=== PATIENT | female | born 1995 | race Caucasian/White ===

== ENCOUNTER 2018-02-25 09:13 | Emergency (ER) | payer BC ==
[~2018-02-25] VITALS: Ht 165.1 cm; Wt 49.1 kg
[~2018-02-25 09:13] MED LIST: IBUP-232 PO; OSEL75 PO; ZOFR4TAB PO
[2018-02-25 09:15] VITALS: BP 121/58; PULSE 97; RESP 16; TEMP 98.2; O2SAT 95
--- NOTE | 2018-02-25 09:39 | PD ---
HPI Chief Complaint: Abdominal Pain Time Seen by Provider: 09:30 Travel History International Travel<30 days: No Contact w/Intl Traveler<30days: No Traveled to known affect area: No History of Present Illness HPI This 22-year-old female says she was awoken early this morning with lower abdominal pain. Pain involves the right flank and right side of the abdomen. She says it is quite severe. She does not recall having pain like this before. Her last period was about a month ago. She says there is no chance of . Her last period was 1 month ago [facility] Past Medical History Anxiety: Yes Depression: Yes Diminished Hearing: No Gastrointestinal Disorders: Yes (IRRITABLE BOWEL SYNDROME) Headaches: Yes Immunizations Current: Yes Migraines: Yes Influenza Vaccination: No ?: Not LMP: LAST MONTH Past Surgical History Abdominal Surgery: Yes Section: Yes Social History Alcohol Use: Yes (OCC) Tobacco Use: Yes (OCCAS) Substance Use: No Allergies-Medications (Allergen,Severity, Reaction): Coded Allergies: latex (Unverified Allergy, Intermediate, Burning, 02/25/18) hydrocodone (Unverified Allergy, Unknown, itchy, 02/25/18) oxycodone (Unverified Allergy, Unknown, makes me sick, 02/25/18) Uncoded Allergies: LATEX CONDOMS (Adverse Reaction, Intermediate, BURNING, 02/25/18) .. Reported Meds & Prescriptions Reported Meds & Active Scripts Active Review of Systems General / Constitutional: No: Fever, Chills Eyes: No: Diploplia, Blurred Vision HENT: No: Headaches Cardiovascular: No: Chest Pain or Discomfort Respiratory: No: Cough Gastrointestinal: Positive: Nausea Genitourinary: Positive: Flank Pain Musculoskeletal: No: Myalgias, Arthralgias Skin: No Rash, No Itching Neurologic: No: Weakness Hematologic/Lymphatic: No: Easy Bruising Physical Exam Narrative GENERAL: Well-developed female SKIN: Focused skin assessment warm/dry. HEAD: Atraumatic. Normocephalic. EYES: Pupils equal and round. No scleral icterus. No injection or drainage. ENT: No nasal bleeding or discharge. Mucous membranes pink and moist. NECK: Trachea midline. No JVD. CARDIOVASCULAR: Regular rate and rhythm. No murmur appreciated. RESPIRATORY: No accessory muscle use. Clear to auscultation. Breath sounds equal bilaterally. GASTROINTESTINAL: Abdomen soft, non-tender, nondistended. Hepatic and splenic margins not palpable. There is some right CVA tendernesS Pelvic exam is slight bleeding from the cervical loss. There is some pain with movement of the cervix and some uterine tenderness no abnormal masses are felt MUSCULOSKELETAL: No obvious deformities. No clubbing. No cyanosis. No edema. NEUROLOGICAL: Awake and alert. No obvious cranial nerve deficits. Motor grossly within normal limits. Normal speech. PSYCHIATRIC: Appropriate mood and affect; insight and judgment normal. Data Data Last Documented VS Vital Signs Date Time Temp Pulse Resp B/P (MAP) Pulse Ox O2 Delivery O2 Flow Rate FiO2 02/25/18 10:46 84 18 113/74 (87) 97 Room Air 02/25/18 09:15 98.2 Orders Orders Urinalysis - C+S If Indicated (02/25/18 09:29) Ed Urine Pregnancytest Poc (02/25/18 09:29) Complete Blood Count With Diff (02/25/18 09:35) Comprehensive Metabolic Panel (02/25/18 09:35) Sodium Chlor 0.9% 1000 Ml Inj (Ns 1000 M (02/25/18 09:45) Ondansetron Inj (Zofran Inj) (02/25/18 09:45) Ketorolac Inj (Toradol Inj) (02/25/18 09:45) Ct Abd/Pel W/O Iv Contrast (02/25/18 10:03) Hydromorphone Pf Inj (Dilaudid Pf Inj) (02/25/18 10:30) Hydromorphone Pf Inj (Dilaudid Pf Inj) (02/25/18 11:00) Gc And Chlamydia Pcr (02/25/18 10:55) Ceftriaxone Inj (Rocephin Inj) (02/25/18 11:00) Labs Laboratory Tests Test 02/25/18 09:25 02/25/18 09:50 Urine Collection Type CLEAN CATCH Urine Color YELLOW Urine Turbidity SL CLOUDY Urine pH 5.5 Urine Specific [place] GREATER/EQUAL 1.030 Urine Protein NEG mg/dL Urine Glucose (UA) NEG mg/dL Urine Ketones TRACE mg/dL Urine Occult Blood LARGE Urine Nitrite NEG Urine Bilirubin NEG Urine Urobilinogen 0.2 MG/DL Urine Leukocyte Esterase NEG Urine RBC 25-49 /hpf Urine WBC 3-5 /hpf Urine Squamous Epithelial Cells 6-8 /hpf Urine Amorphous Sediment MOD Microscopic Urinalysis Comment CULT NOT INDICATED Urine Collection Time 0925 White Blood Count 8.8 TH/MM3 Red Blood Count 5.27 MIL/MM3 Hemoglobin 17.6 GM/DL Hematocrit 48.5 % Mean Corpuscular Volume 92.0 FL Mean Corpuscular Hemoglobin 33.3 PG Mean Corpuscular Hemoglobin Concent 36.2 % Red Cell Distribution Width 12.7 % Platelet Count 219 TH/MM3 Mean Platelet Volume 10.0 FL Neutrophils (%) (Auto) 79.8 % Lymphocytes (%) (Auto) 13.5 % Monocytes (%) (Auto) 4.6 % Eosinophils (%) (Auto) 0.2 % Basophils (%) (Auto) 1.9 % Neutrophils # (Auto) 6.9 TH/MM3 Lymphocytes # (Auto) 1.2 TH/MM3 Monocytes # (Auto) 0.4 TH/MM3 Eosinophils # (Auto) 0.0 TH/MM3 Basophils # (Auto) 0.2 TH/MM3 CBC Comment AUTO DIFF Differential Comment AUTO DIFF CONFIRMED Platelet Estimate NORMAL Platelet Morphology Comment NORMAL Blood Urea Nitrogen 10 MG/DL Creatinine 0.63 MG/DL Random Glucose 106 MG/DL Total Protein 8.9 GM/DL Albumin 5.1 GM/DL Calcium Level 9.5 MG/DL Alkaline Phosphatase 74 U/L Aspartate Amino Transf (AST/SGOT) 19 U/L Alanine Aminotransferase (ALT/SGPT) 24 U/L Total Bilirubin 0.3 MG/DL Sodium Level 140 MEQ/L Potassium Level 4.2 MEQ/L Chloride Level 108 MEQ/L Carbon Dioxide Level 23.1 MEQ/L Anion Gap 9 MEQ/L Estimat Glomerular Filtration Rate 117 ML/MIN [facility] Medical Decision Making Medical Screen Exam Complete: Yes Emergency Medical Condition: Yes Medical Record Reviewed: Yes Differential Diagnosis Differential includes renal colic, ovarian cyst, appendicitis Narrative Course Urinalysis did show 25-[address] was obtained for kidney stone and is negative for stone. The white count is normal. Exam is suspicious for ovarian cyst. She does have some pain with movement of the cervix and will be covered for cervicitis. Patient indicates an allergy to hydrocodone and oxycodone. She says that they cause her to have some mild itching But she generally tolerates theM well Diagnosis Primary Impression: Right ovarian cyst Scripts Hydrocodone-Acetaminophen ([place]) 7.5-325 mg Tab 1 TAB PO Q4H Y for PAIN, #12 TAB 0 Refills Prov: Jim Sparks MD 02/25/18 Doxycycline Hyclate (Vibramycin) 100 Mg Cap 100 MG PO BID for Infection for 20 Days, #40 CAP 0 Refills Prov: Jim Sparks MD 02/25/18 Disposition: 01 DISCHARGE HOME Condition: Stable Jim Sparks MD Feb 25, 2018 09:39
[2018-02-25] MEDS ORDERED: SODIUM CHLOR 0.9% 1000 ML INJ 1,000 ML IV ONE (09:45)
[2018-02-25] MEDS ORDERED: ONDANSETRON HCL 4 MG/2 ML VIAL IV PUSH ONE (09:45)
[2018-02-25] MEDS ORDERED: KETOROLAC TROMETHAMINE 30 MG/ML (IVP) VIAL IV PUSH ONE (09:45)
[2018-02-25 09:51] LABS: BLOOD, URINE LARGE (NEG); GLUCOSE,URINE NEG (NEG); KETONE, URINE TRACE mg/dL (NEG); NITRITE,URINE NEG (NEG); PH, URINE 5.5 (5.0-8.5); URINE COLOR YELLOW (YELLW/STRAW); URINE LEUKOCYTE ESTERASE NEG (NEG)
[2018-02-25 09:57] LABS: BILIRUBIN, URINE NEG (NEG)
[2018-02-25 10:01] LABS: AMORPHOUS SEDIMENT, URINE MOD
[2018-02-25 10:06] LABS: AUTOMATED NEUTROPHIL # 6.9 TH/MM3 (1.8-7.7); BASOPHIL # 0.2 TH/MM3 (0-0.2); BASOPHIL % 1.9 % (0.0-2.0); EOSINOPHIL % 0.2 % (0.0-4.0); HEMATOCRIT 48.5 % (35.0-46.0); HEMOGLOBIN 17.6 GM/DL (11.6-15.3); LYMPH % 13.5 % (9.0-44.0); LYMPHOCYTE # 1.2 TH/MM3 (1.0-4.8); MEAN CORPUSCULAR HEMOGLOBIN 33.3 PG (27.0-34.0); MONO % 4.6 % (0.0-8.0); MONOCYTE # 0.4 TH/MM3 (0-0.9); NEUT % 79.8 % (16.0-70.0); PLATELET COUNT 219 TH/MM3 (150-450); RED BLOOD COUNT 5.27 MIL/MM3 (4.00-5.30); RED CELL DISTRIBUTION WIDTH 12.7 % (11.6-17.2); WHITE BLOOD COUNT 8.8 TH/MM3 (4.0-11.0)
[2018-02-25 10:16] LABS: CHLORIDE 108 MEQ/L (98-107); SODIUM (NA) 140 MEQ/L (136-145)
[2018-02-25 10:17] LABS: CALCIUM 9.5 MG/DL (8.5-10.1)
[2018-02-25 10:18] LABS: ALBUMIN 5.1 GM/DL (3.4-5.0); BICARBONATE 23.1 MEQ/L (21.0-32.0); BLOOD UREA NITROGEN 10 MG/DL (7-18); GLUCOSE,RANDOM 106 MG/DL (74-106)
[2018-02-25 10:19] LABS: MEAN CORPUSCULAR HGB CONC 36.2 % (32.0-36.0)
[2018-02-25 10:21] LABS: ALT (GPT) 24 U/L (10-53); AST (GOT) 19 U/L (15-37); CREATININE 0.63 MG/DL (0.50-1.00); GLOMERULAR FILTRATION RATE 117 ML/MIN (>89)
[2018-02-25 10:22] LABS: TOTAL BILIRUBIN ADULT 0.3 MG/DL (0.2-1.0); TOTAL PROTEIN 8.9 GM/DL (6.4-8.2)
[2018-02-25 10:24] LABS: ALKALINE PHOSPHATASE 74 U/L (45-117)
[2018-02-25] MEDS ORDERED: HYDROmorphone HCL PF 1 MG/ML VIAL IV PUSH ONE (10:30)
--- NOTE | 2018-02-25 10:45 | RADRPT ---
EXAM DATE: 02/25/2018 10:27 AM EDT AGE/SEX: 22 years / Female INDICATIONS: Right flank pain. CLINICAL DATA: This is the patient's initial encounter. Patient reports that signs and symptoms have been present for 1 day and indicates a pain score of 9/10. MEDICAL/SURGICAL HISTORY: Irritable bowel syndrome. section. RADIATION DOSE: 4.31 CTDI (mGy) COMPARISON: No prior exams available for comparison. TECHNIQUE: Multiple contiguous axial images were obtained through the abdomen. Images were obtained using multiple row detector helical technique. Using dose reduction techniques, radiation dose was ke pt as low as reasonably achievable to obtain optimal diagnostic quality images. FINDINGS: Lower Lungs: The visualized lower lungs are clear. Liver: Visualized portions grossly unremarkable Spleen: Homogeneous density without enlargement. Pancreas: Unremarkable without mass or calcification. Kidneys: Normal in size and shape. No evidence of mass or hydronephrosis. Adrenal Glands: Unremarkable. Aorta: The aorta and proximal iliac vessels are grossly unremarkable without aneurysmal dilation. Bowel/Mesentery: The bowel loops are grossly unremarkable. The cecum and sigmoid colon have a normal configuration. Abdominal Wall: Intact. Retroperitoneum: No evidence of adenopathy in the retrocrural, para-aortic, or deep pelvic regions. Bladder: Contours are smooth. Reproductive Organs: No abnormal masses or calcifications seen. Inguinal: The inguinal region is unremarkable without evidence of adenopathy. Bony Structures: Unremarkable. CONCLUSION: No evidence of kidney stone or hydronephrosis Electronically signed by: Rohit Page MD 02/25/2018 10:44 AM EDT
[2018-02-25 10:46] VITALS: BP 113/74; PULSE 84; RESP 18; O2SAT 97
[2018-02-25] MEDS ORDERED: cefTRIAXone INJ 1,000 MG in SODIUM CHLORIDE 0.9% INJ 100 ML IV ONE (11:00)
[2018-02-25] MEDS ORDERED: HYDROmorphone HCL PF 0.5 MG/0.5 ML SYRINGE IV PUSH ONE (11:00)
[2018-02-25] MEDS ORDERED: VIBR100C PO (11:06)
[2018-02-25] MEDS ORDERED: HYDR-3288 PO (11:06)
[2018-02-25 11:44] VITALS: BP 112/59; PULSE 56; RESP 18; O2SAT 99
== END 2018-02-25 12:12 | disposition home or self-care (01) ==
LOC: PHED 09:13
DX: N83.201 Unspecified ovarian cyst, right side (principal); F41.9 Anxiety disorder, unspecified; F32.9 Major depressive disorder, single episode, unspecified; K58.9 Irritable bowel syndrome, unspecified; Z72.0 Tobacco use
CPT/HCPCS: 74176; 80053; 81001; 84703; 85025; 87491; 87591; 96361; 96365; 96375; 99284; J0696; J1170; J1885; J2405; J7030

== ENCOUNTER 2018-03-02 18:05 | Emergency (ER) | payer BC ==
[~2018-03-02] VITALS: Ht 165.1 cm; Wt 46.0 kg
[~2018-03-02 18:05] MED LIST changes: +HYDR-3288 PO; -IBUP-232 PO; -OSEL75 PO; +VIBR100C PO; -ZOFR4TAB PO
[2018-03-02 18:11] VITALS: BP 124/78; PULSE 85; RESP 16; TEMP 98.3; O2SAT 99
--- NOTE | 2018-03-02 18:30 | PD ---
HPI Chief Complaint: Abdominal Pain Time Seen by Provider: 18:18 Travel History International Travel<30 days: No Contact w/Intl Traveler<30days: No Traveled to known affect area: No History of Present Illness HPI 22yo F with PMH of anxiety here with c/o persistent abdominal pain since last week. Pt was seen here at [facility] on 02/25/18 and had urinalysis that showed RBC so CT a/p was completed but did not show any stones. Pelvic exam at the time suspicious for ovarian cyst with some pain with movement of cervix so pt was given doxycycline. Pt said her pain has moved from lower to mid/upper right abdomen. Said pain radiates from right mid abdomen to back. Associated with nausea but not vomiting. No actual fever but feels warm and cold. Pt said she is at the end of her menstrual period. PFSH Past Medical History Anxiety: Yes Depression: Yes Diminished Hearing: No Gastrointestinal Disorders: Yes (IRRITABLE BOWEL SYNDROME) Headaches: Yes Immunizations Current: Yes Migraines: Yes ?: Not LMP: 02/23/18 Past Surgical History Abdominal Surgery: Yes Section: Yes Social History Alcohol Use: Yes (OCC) Tobacco Use: Yes (OCCAS) Substance Use: No Allergies-Medications (Allergen,Severity, Reaction): Coded Allergies: latex (Unverified Allergy, Intermediate, Burning, 03/02/18) hydrocodone (Unverified Allergy, Unknown, itchy, 03/02/18) oxycodone (Unverified Allergy, Unknown, makes me sick, 03/02/18) Uncoded Allergies: LATEX CONDOMS (Adverse Reaction, Intermediate, BURNING, 03/02/18) ... Reported Meds & Prescriptions Reported Meds & Active Scripts Active Hydroxyzine HCl 50 Mg Tab 50 Mg PO BID PRN Ibuprofen 600 Mg Tab 600 Mg PO Q8HR PRN Tylenol (Acetaminophen) 325 Mg Tab 650 Mg PO Q4H PRN Review of Systems Except as stated in HPI: all other systems reviewed are Neg Physical Exam Narrative GENERAL: 22yo anxious appearing, crying. SKIN: Focused skin assessment warm/dry. HEAD: Atraumatic. Normocephalic. EYES: Pupils equal and round. No scleral icterus. No injection or drainage. ENT: No nasal bleeding or discharge. Mucous membranes pink and moist. NECK: Trachea midline. No JVD. CARDIOVASCULAR: Regular rate and rhythm. No murmur appreciated. RESPIRATORY: No accessory muscle use. Clear to auscultation. Breath sounds equal bilaterally. GASTROINTESTINAL: Abdomen soft, +TTP epigastric > RUQ. No RLQ ttp. No rebound tenderness or guarding. MUSCULOSKELETAL: No obvious deformities. No clubbing. No cyanosis. No edema. NEUROLOGICAL: Awake and alert. No obvious cranial nerve deficits. Motor grossly within normal limits. Normal speech. PSYCHIATRIC: Anxious appearing. Data Data Last Documented VS Vital Signs Date Time Temp Pulse Resp B/P (MAP) Pulse Ox O2 Delivery O2 Flow Rate FiO2 03/02/18 22:52 68 16 113/63 (80) 100 03/02/18 21:00 Room Air 03/02/18 18:11 98.3 Orders Orders Ed Urine Pregnancytest Poc (03/02/18 18:25) Complete Blood Count With Diff (03/02/18 18:25) Comprehensive Metabolic Panel (03/02/18 18:25) Lipase (03/02/18 18:25) Urinalysis - C+S If Indicated (03/02/18 18:25) Lorazepam Inj (Ativan Inj) (03/02/18 19:00) Ketorolac Inj (Toradol Inj) (03/02/18 19:00) Ondansetron Odt (Zofran Odt) (03/02/18 19:00) Urine Culture (03/02/18 18:45) Us Abdomen Gallbladder (03/02/18 ) Basic Metabolic Panel (Bmp) (03/02/18 20:39) Acetaminophen (Tylenol) (03/02/18 21:15) Ed Discharge Order (03/02/18 21:50) Hydroxyzine Hcl (Atarax) (03/02/18 22:30) Labs Laboratory Tests Test 03/02/18 18:45 03/02/18 19:17 03/02/18 20:51 Urine Color YELLOW Urine Turbidity CLEAR Urine pH 6.0 Urine Specific [place] GREATER/EQUAL 1.030 Urine Protein 30 mg/dL Urine Glucose (UA) NEG mg/dL Urine Ketones 80 OR GREATER mg/dL Urine Occult Blood LARGE Urine Nitrite NEG Urine Bilirubin MOD Urine Urobilinogen 1.0 MG/DL Urine Leukocyte Esterase NEG Urine RBC 0-3 /hpf Urine WBC 9-14 /hpf Urine Squamous Epithelial Cells 6-8 /hpf Urine Bacteria FEW /hpf Urine Hyaline Casts 0-2 /lpf Microscopic Urinalysis Comment CULTURE INDICATED White Blood Count 9.2 TH/MM3 Red Blood Count 5.62 MIL/MM3 Hemoglobin 17.9 GM/DL Hematocrit 52.3 % Mean Corpuscular Volume 93.0 FL Mean Corpuscular Hemoglobin 31.9 PG Mean Corpuscular Hemoglobin Concent 34.3 % Red Cell Distribution Width 12.1 % Platelet Count 236 TH/MM3 Mean Platelet Volume 9.1 FL Neutrophils (%) (Auto) 74.0 % Lymphocytes (%) (Auto) 18.0 % Monocytes (%) (Auto) 5.8 % Eosinophils (%) (Auto) 0.5 % Basophils (%) (Auto) 1.7 % Neutrophils # (Auto) 6.8 TH/MM3 Lymphocytes # (Auto) 1.7 TH/MM3 Monocytes # (Auto) 0.5 TH/MM3 Eosinophils # (Auto) 0.0 TH/MM3 Basophils # (Auto) 0.2 TH/MM3 CBC Comment DIFF FINAL Differential Comment Blood Urea Nitrogen 11 MG/DL 12 MG/DL Creatinine 0.69 MG/DL 0.66 MG/DL Random Glucose 64 MG/DL 68 MG/DL Total Protein 9.6 GM/DL Albumin 4.5 GM/DL Calcium Level 9.8 MG/DL 9.2 MG/DL Alkaline Phosphatase 79 U/L Aspartate Amino Transf (AST/SGOT) 49 U/L Alanine Aminotransferase (ALT/SGPT) 21 U/L Total Bilirubin 1.0 MG/DL Sodium Level 137 MEQ/L 138 MEQ/L Potassium Level 6.5 MEQ/L 3.9 MEQ/L Chloride Level 103 MEQ/L 102 MEQ/L Carbon Dioxide Level 20.6 MEQ/L 20.5 MEQ/L Anion Gap 13 MEQ/L 16 MEQ/L Estimat Glomerular Filtration Rate 105 ML/MIN 111 ML/MIN Lipase 79 U/L [facility] Medical Decision Making Medical Screen Exam Complete: Yes Emergency Medical Condition: Yes Differential Diagnosis Acute pancreatitis vs. Acute cholecystitis vs. UTI vs. anxiety Narrative Course 22yo F with c/o persistent right sided abdominal pain. Pt was just evaluated here on 02/25/[address] a/p. Pt is crying and did not take the norco that was discharged to her today. Said she had her tooth extracted yesterday and did not take doxycycline today and yesterday. Pt's pain is more upper abdomen and epigastric region now. Urine is negative. Pt appears very anxious to me and said she has history of anxiety so will give ativan 1mg. Will give zofran and toradol for pain and nausea. Pt seen at the end of my shift so sign out to next team to follow up with labs including CBC, CMP, lipase and urinalysis. Diagnosis Primary Impression: Abdominal pain Qualified Codes: R10.11 - Right upper quadrant pain Scripts Hydroxyzine HCl (Hydroxyzine HCl) 50 Mg Tab 50 MG PO BID Y for ANXIETY, #15 TAB 0 Refills Prov: Ashok Rizo MD 03/02/18 Ibuprofen (Ibuprofen) 600 Mg Tab 600 MG PO Q8HR Y for PAIN, #20 TAB 0 Refills Prov: Ashok Rizo MD 03/02/18 Acetaminophen (Tylenol) 325 Mg Tab 650 MG PO Q4H Y for PAIN SCALE 1 TO 5, #20 TAB 0 Refills Prov: Ashok Rizo MD 03/02/18 Agnieszka Herrera DO Mar 02, 2018 18:30
[2018-03-02 18:49] LABS: BILIRUBIN, URINE MOD (NEG); BLOOD, URINE LARGE (NEG); GLUCOSE,URINE NEG (NEG); KETONE, URINE 80 OR GREATER mg/dL (NEG); NITRITE,URINE NEG (NEG); URINE COLOR YELLOW (YELLW/STRAW); URINE LEUKOCYTE ESTERASE NEG (NEG)
[2018-03-02 19:00] LABS: BACTERIA, URINE FEW /hpf; HYALINE CAST, URINE 0-2 /lpf (RARE); RBC, URINE 0-3 /hpf (0-3)
[2018-03-02] MEDS ORDERED: ONDANSETRON ODT 4 MG TAB PO ONE (19:00)
[2018-03-02] MEDS ORDERED: LORazepam 2 MG/ML VIAL IV PUSH ONE (19:00)
[2018-03-02] MEDS ORDERED: KETOROLAC TROMETHAMINE 30 MG/ML (IVP) VIAL IV PUSH ONE (19:00)
[2018-03-02 19:26] LABS: AUTOMATED NEUTROPHIL # 6.8 TH/MM3 (1.8-7.7); BASOPHIL # 0.2 TH/MM3 (0-0.2); BASOPHIL % 1.7 % (0.0-2.0); EOSINOPHIL % 0.5 % (0.0-4.0); HEMATOCRIT 52.3 % (35.0-46.0); HEMOGLOBIN 17.9 GM/DL (11.6-15.3); LYMPHOCYTE # 1.7 TH/MM3 (1.0-4.8); MEAN CORPUSCULAR HEMOGLOBIN 31.9 PG (27.0-34.0); MEAN CORPUSCULAR HGB CONC 34.3 % (32.0-36.0); MEAN PLATELET VOLUME 9.1 FL (7.0-11.0); MONO % 5.8 % (0.0-8.0); MONOCYTE # 0.5 TH/MM3 (0-0.9); PLATELET COUNT 236 TH/MM3 (150-450); RED BLOOD COUNT 5.62 MIL/MM3 (4.00-5.30); RED CELL DISTRIBUTION WIDTH 12.1 % (11.6-17.2); WHITE BLOOD COUNT 9.2 TH/MM3 (4.0-11.0)
[2018-03-02 19:36] VITALS: BP 109/64; PULSE 70; RESP 16; O2SAT 97
[2018-03-02 19:36] LABS: CHLORIDE 103 MEQ/L (98-107); SODIUM (NA) 137 MEQ/L (136-145)
[2018-03-02 19:39] LABS: CALCIUM 9.8 MG/DL (8.5-10.1)
[2018-03-02 19:40] LABS: ALBUMIN 4.5 GM/DL (3.4-5.0); BICARBONATE 20.6 MEQ/L (21.0-32.0); BLOOD UREA NITROGEN 11 MG/DL (7-18); GLUCOSE,RANDOM 64 MG/DL (74-106)
[2018-03-02 19:43] LABS: ALT (GPT) 21 U/L (10-53); AST (GOT) 49 U/L (15-37); CREATININE 0.69 MG/DL (0.50-1.00); GLOMERULAR FILTRATION RATE 105 ML/MIN (>89)
[2018-03-02 19:44] LABS: TOTAL PROTEIN 9.6 GM/DL (6.4-8.2)
[2018-03-02 19:46] LABS: ALKALINE PHOSPHATASE 79 U/L (45-117)
--- NOTE | 2018-03-02 20:22 | RADRPT ---
EXAM DATE: 03/02/2018 8:16 PM EDT AGE/SEX: 22 years / Female INDICATIONS: Right sided pain. CLINICAL DATA: This is the patient's initial encounter. Patient reports that signs and/or symptoms h ave been present for 1 day and indicates a pain score of 9/10. MEDICAL/SURGICAL HISTORY: Irritable bowel syndrome. section. COMPARISON: [facility], US ABDOMEN - GALLBLADDER, 02/05/2015. . MEASUREMENTS (cm x cm x cm): Liver:__ 13.5 cm length Common Bile Duct:__ 3mm FINDINGS: Liver: Normal echotexture without focal lesion or ductal dilatation. Portal Vein: Hepatopedal flow seen in portal vein. Common Duct: No intraluminal mass or stone visualized. Gallbladder: Demonstrates no wall thickening or pericholecystic fluid. No stones visualized. Pancreas: The visualized portions are within normal limits Right Kidney: No mass or hydronephrosis Other: None. CONCLUSION: 1. Normal abdominal ultrasound Electronically signed by: Marcus Zuniga MD 03/02/2018 8:21 PM EDT
[2018-03-02 21:00] VITALS: BP 121/74; PULSE 74; RESP 18; O2SAT 100
[2018-03-02] MEDS ORDERED: ACETAMINOPHEN 500 MG CPLT PO ONE (21:15)
[2018-03-02 21:23] LABS: BICARBONATE 20.5 MEQ/L (21.0-32.0); CALCIUM 9.2 MG/DL (8.5-10.1); CREATININE 0.66 MG/DL (0.50-1.00)
[2018-03-02] MEDS ORDERED: HYDR50TA94 PO (21:50)
[2018-03-02] MEDS ORDERED: IBUP-232 PO (21:50)
[2018-03-02] MEDS ORDERED: TYLE325T PO (21:50)
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
[2018-03-02] MEDS ORDERED: hydrOXYzine HCL 50 MG TAB PO ONE (22:30)
[2018-03-02 22:32] VITALS: RESP 16
[2018-03-02 22:52] VITALS: BP 113/63
== END 2018-03-02 22:54 | disposition home or self-care (01) ==
LOC: PHED 18:05
DX: R10.11 Right upper quadrant pain (principal); R11.0 Nausea; M54.9 Dorsalgia, unspecified; F41.8 Other specified anxiety disorders; K58.9 Irritable bowel syndrome, unspecified; Z72.0 Tobacco use
CPT/HCPCS: 76705; 80053; 81001; 83690; 84703; 85025; 87086; 96374; 96375; 99284; J1885; J2060; 80048